=== PATIENT | male | born 1950 | race Caucasian/White ===

== ENCOUNTER → 2022-09-15 | Outpatient (CLI) | payer MEDICARE, SELFPAY ==
--- NOTE | 2022-09-15 12:45 | MRI_ITS ---
STUDY: MRI LUMBAR SPINE WITHOUT CONTRAST REASON FOR EXAM: Male, 72 years old. STENOSIS TECHNIQUE: Standardized fat and water weighted pulse sequences were obtained in the sagittal and axial planes. COMPARISON: None FINDINGS: T12-L1: (Sagittal only). Normal endplates. Normal disc height, hydration and morphology. Normal central canal and bilateral intervertebral neural foramina. Normal lumbar lordosis. There is no substantial scoliosis. Normal conus medullaris that terminates at the upper L1 vertebral body level. L1-2: Normal endplate. Schmorl''s node in the posterior L1 inferior endplate. Mild bilateral degenerative facet arthropathy. Normal central canal and bilateral lateral recesses. Normal bilateral intervertebral neural foramina. L2-3: Normal endplates. Normal disc height, hydration and morphology. Normal bilateral facet joints. Normal central canal and bilateral lateral recesses. Normal bilateral intervertebral neural foramina. L3-4: Normal place. Minimal disc space narrowing. Minimal degenerative retrolisthesis of L3 on L4. Mild asymmetric degenerative facet arthropathy. Normal central canal and bilateral lateral recesses. Normal bilateral intervertebral neural foramina. L4-5: Normal endplates. Normal disc height, hydration and morphology. Moderate left degenerative facet arthropathy. Normal right facet joint. Left posterior ligamentum flavum hypertrophy. Normal central canal and bilateral lateral recesses. Normal bilateral intervertebral neural foramina. L5-S1: Normal endplates. Normal disc height, hydration and morphology. Pronounced right degenerative facet hypertrophy. Severe stenosis of the right lateral recess due to bony right medial synovial hypertrophy causing anterior displacement of the right S1 nerve root sleeve and ossified right posterior ligamentum flavum hypertrophy. Normal central canal and left lateral recess. Normal left facet joint. Moderate stenosis of the right intervertebral neural foramen. Normal left intervertebral neural foramen. Normal visualized sacral ala. Normal visualized paraspinous soft tissue structures. OPINION: 1. Severe stenosis of the right L5-S1 lateral recess with anterior displacement of the right S1 nerve root sleeve secondary to bony medial synovial hypertrophy, ossified right posterior ligamentum flavum hypertrophy and pronounced right L5-S1 degenerative facet arthropathy. 2. Minimal degenerative retrolisthesis of L3 on L4. 3. No MRI evidence of lumbar extruded disc fragment. Electronically Signed: Cooper Glasgow MD at 14:36 EST , MRI/Spine Lumbar (Routine) IMPRESSION: undefined
[2022-09-15 13:30] VITALS: BP 138/81; PULSE 85; O2SAT 97
[2022-09-15 13:45] VITALS: BP 137/80; PULSE 85; RESP 18; O2SAT 96
[2022-09-15 13:52] VITALS: BP 133/85; PULSE 85; O2SAT 95
== END | disposition home or self-care (01) ==
LOC: MRI 12:35
PROVIDERS: Referring Provider Orthopaedic Surgery; Visit Provider Orthopaedic Surgery
DX: M48.061 Spinal stenosis, lumbar region without neurogenic claudication (principal); M47.26 Other spondylosis with radiculopathy, lumbar region; M51.36 Other intervertebral disc degeneration, lumbar region
CPT/HCPCS: 72148

== ENCOUNTER → 2025-01-19 | Outpatient (CLI) | payer MEDICARE, OTHER, SELFPAY ==
--- NOTE | 2025-01-19 12:32 | EKG12_ITS ---
Test Reason : PRE OP Blood Pressure : */* mmHG Vent. Rate : 62 BPM Atrial Rate : 62 BPM P-R Int : 126 ms QRS Dur : 106 ms QT Int : 428 ms P-R-T Axes : 76 82 88 degrees QTcB Int : 434 ms Normal sinus rhythm Nonspecific ST abnormality Abnormal ECG Confirmed by DOMINIQUE STEPHEN, YEN ([id number]), photographic editor ALEA MINOR ([id number]) on 01/20/2025 9:32:19 AM Referred By: Rick Foy Confirmed By: YEN FOX MD
[2025-01-19 13:00] LABS: Hematocrit 40.7 % (40-54); Hemoglobin 13.7 g/dL (13.0-16.5); Mean Corp Hgb Conc 33.7 g/dL (32-36); Mean Corpuscular Hgb 31.4 pg (27.0-32.0); Mean Corpuscular Volume 93.3 fL (80-94); Mean Platelet Vol. 11.7 fl (6.2-12.0); Platelet Count 121 K/mm3 (150-450); RBC Distribution Width CV 12.1 % (11.6-14.6); RBC Distribution Width SD 41.8 fl (35.1-43.9); Red Blood Count 4.36 M/mm3 (4.6-6.2); White Blood Count 6.9 K/mm3 (4.4-11.0)
[2025-01-19 13:56] LABS: Anion Gap 9 (5-15); BUN 16 mg/dL (4-19); BUN/Creat Ratio 17.5 RATIO (10-20); Calcium,Total 9.4 mg/dL (7.6-11.0); Carbon Dioxide 26.1 mmol/L (21.0-32.0); Chloride 106 mmol/L (98-108); Creatinine, Serum 0.93 mg/dL (0.70-1.20); EST Glomerular Filtration Rate 87 (>60); Glucose 73 mg/dL (70-99); Potassium 4.2 mmol/L (3.3-5.1); Sodium Level 142 mmol/L (133-145)
== END | disposition home or self-care (01) ==
PROVIDERS: Referring Provider Otolaryngology; Visit Provider Otolaryngology
DX: Z01.810 Encounter for preprocedural cardiovascular examination (principal)
CPT/HCPCS: 36415; 80048; 85027; 93005

== ENCOUNTER → 2025-02-23 | Outpatient (CLI) | payer MEDICARE, OTHER, SELFPAY ==
[2025-02-23 16:52] LABS: Hematocrit 40.3 % (40-54); Hemoglobin 13.5 g/dL (13.0-16.5); Mean Corp Hgb Conc 33.5 g/dL (32-36); Mean Corpuscular Hgb 31.7 pg (27.0-32.0); Mean Corpuscular Volume 94.6 fL (80-94); Mean Platelet Vol. 12.4 fl (6.2-12.0); Platelet Count 127 K/mm3 (150-450); RBC Distribution Width CV 12.1 % (11.6-14.6); RBC Distribution Width SD 42.3 fl (35.1-43.9); Red Blood Count 4.26 M/mm3 (4.6-6.2); White Blood Count 7.6 K/mm3 (4.4-11.0)
[2025-02-23 17:36] LABS: Anion Gap 9 (5-15); BUN 18 mg/dL (4-19); BUN/Creat Ratio 18.8 RATIO (10-20); Calcium,Total 9.5 mg/dL (7.6-11.0); Carbon Dioxide 25.6 mmol/L (21.0-32.0); Chloride 106 mmol/L (98-108); Creatinine, Serum 0.95 mg/dL (0.70-1.20); EST Glomerular Filtration Rate 84 (>60); Glucose 134 mg/dL (70-99); Potassium 4.1 mmol/L (3.3-5.1); Sodium Level 141 mmol/L (133-145)
== END | disposition home or self-care (01) ==
LOC: LAB 15:18
PROVIDERS: Referring Provider Otolaryngology; Visit Provider Otolaryngology
DX: Z01.818 Encounter for other preprocedural examination (principal)
CPT/HCPCS: 36415; 80048; 85027

== ENCOUNTER → 2025-02-28 | Outpatient (CLI) | payer MEDICARE, OTHER, SELFPAY ==
--- NOTE | 2025-02-28 | SEP_PTH ---
PATIENT: PAUL MELENDREZ LOC: [facility] U#:[id number] AGE/SX: 74/M ROOM: RE02/28/[address]: Dr. Kevin Zamudio MD : 1950 BED: DIS: 02/28/2025 SPEC #: [id number] RECD: 02/28/25 15:07 STATUS: SANJUANITA NILDA #: [id number] ONEYDA: 02/28/25 00:[address]: Kevin Zamudio DEPT: SURGICAL PATHOLOGY RECD BY: Kana Rodriges ENTERED: 03/01/25 07:40 SP TYPE: SEPTUM OTHR DR: Dr. Feliciano Esparza, DO Tissues: A - Nasal septum, NOS Procedures: Decalcification bone/plaque Surgery Specimen Level III HEADER OPERATION: Septoplasty, submucous resection of inferior turbinates PRE-OP DIAGNOSIS: Hypertrophy of nasal turbinates, deviated nasal septum, nasal congestion TISSUE SUBMITTED: A- Septum MICROSCOPIC DIAGNOSIS A. Nasal septum, septoplasty: * Hyaline cartilage with reactive/degenerative changes. * Bone with fibrotic marrow spaces. MICROSCOPIC DESCRIPTION Slides are reviewed. GROSS DESCRIPTION A. Received in formalin in a container labeled with the patient's name, date of , and septum are multiple alexander-pink and indurated fragments of possible cartilage measuring 3.0 x 2.1 x 0.4 cm in aggregate. Sectioning reveals uniform white-fabian surfaces. There are 2 alexander-pink fragments of firm possible bone measuring 0.7 x 0.4 x 0.4 cm and 1.4 x 0.5 x 0.5 cm. The majority of the specimen is submitted as follows:A1. Possible cartilageA2. Bone following decalcification [facility] 03-01-2025 CPT:89509,55568
== END | disposition home or self-care (01) ==
LOC: LABSPEC 16:02
PROVIDERS: Referring Provider Otolaryngology; Visit Provider Otolaryngology
DX: J34.3 Hypertrophy of nasal turbinates (principal); J34.2 Deviated nasal septum; R09.81 Nasal congestion
CPT/HCPCS: 88304; 88311